=== PATIENT | male | born 1995 | race Caucasian/White ===

== ENCOUNTER 2020-09-24 18:49 | Emergency (ER) | payer SELFPAY ==
[~2020-09-24] VITALS: Ht 182.9 cm; Wt 68.1 kg
--- NOTE | 2020-09-24 19:25 | NUR ---
First contact with patient: patient presents to ER c/o syncopal episode x4 today around 1730. Patient states they all occured within approx 5-8 minutes of each other. Patient remembers texting his walking to his van then woke up in the parking lot. Patient states he may have hit his head. Patient is in NAD. Respirations even and unlabored. Patient feels "fine" right now.
[2020-09-24 20:29] LABS: BASOPHILS % (AUTO) 0 % (0-1); EOSINOPHILS % (AUTO) 0 % (1-7); LYMPHOCYTES % (AUTO) 8 % (22-44); MEAN CORPUSCULAR HEMOGLOBIN 30.6 pg (27.5-34.5); MEAN CORPUSCULAR HGB CONC 34.4 g/dL (33.2-36.2); MEAN PLATELET VOLUME 8.4 fL (7.4-10.4); MONOCYTES % (AUTO) 4 % (2-9); NEUTROPHILS % (AUTO) 87 % (42-75); PLATELET COUNT 285 x10^3/uL (130-400); RED BLOOD COUNT 5.17 x10^6/uL (4.38-5.82); RED CELL DISTRIBUTION WIDTH 13.4 % (9.4-14.8)
[2020-09-24 20:30] LABS: MD NO
[2020-09-24 20:33] LABS: ALBUMIN 4.6 g/dL (3.4-5.0); ANION GAP 6 mmol/L (5-15); CALCIUM 9.1 mg/dL (8.5-10.1); CHLORIDE 106 mmol/L (98-107); CREATININE 0.89 mg/dL (0.7-1.3)
[2020-09-24 20:56] VITALS: BP 120/72
--- NOTE | 2020-09-24 21:38 | NUR ---
Road tested patient; no dizziness. Patient walks with a steady gait.
== END 2020-09-24 22:37 | disposition home or self-care (01) ==
LOC: ED 20:11
DX: S00.03XA Contusion of scalp, initial encounter (principal); R55 Syncope and collapse; R42 Dizziness and giddiness; X58.XXXA Exposure to other specified factors, initial encounter; Y93.89 Activity, other specified; Y92.89 Other specified places as the place of occurrence of the external cause; Y99.8 Other external cause status
CPT/HCPCS: 36415; 80048; 82040; 85025; 93005; 99284